=== PATIENT | male | born 1975 | race Caucasian/White ===

== ENCOUNTER 2020-10-17 12:46 | Emergency (ER) | payer OTHER ==
[~2020-10-17] VITALS: Ht 177.8 cm; Wt 146.9 kg
[2020-10-17 12:59] VITALS: BP 144/85
--- NOTE | 2020-10-17 13:09 | PHYS DOC ---
Past History Past Surgical History: No Surgical History General Adult EDM: Chief Complaint: SHOULDER INJURY HPI: HPI: 45-year-old male presents with left shoulder pain. The patient was up on a ladder working around [employer] when as he was coming down the ladder started to tip over. He hit the railing of the deck and then fell to the ground. He states that he landed on his left shoulder. He is concerned for dislocation or fracture of the left shoulder. He denies hitting his head. He denies loss of consciousness. He has no other significant injuries or complaints at this time. Review of Systems: Review of Systems: Constitutional: Denies fever or chills Eyes: Denies change in visual acuity HENT: Denies nasal congestion or sore throat Respiratory: Denies cough or shortness of breath Cardiovascular: Denies chest pain or edema GI: Denies abdominal pain, nausea, vomiting, bloody stools or diarrhea : Denies dysuria Musculoskeletal: Left shoulder pain Integument: Denies rash Neurologic: Denies headache, focal weakness or sensory changes Endocrine: Denies polyuria or polydipsia Lymphatic: Denies swollen glands Psychiatric: Denies depression or anxiety Allergies: Allergies: Allergies Coded Allergies Type Severity Reaction Last Updated Verified No Known Drug Allergies 10/17/20 No Physical Exam: PE: Constitutional: Well developed, well nourished, morbidly obese, no acute distress, non-toxic appearance. [] HENT: Normocephalic, atraumatic, bilateral external ears normal, oropharynx moist, no oral exudates, nose normal. [] Eyes: PERRLA, EOMI, conjunctiva normal, no discharge. [] Neck: Normal range of motion, no tenderness, supple, no stridor. [] Cardiovascular: Heart rate regular rhythm, no murmur [] Lungs & Thorax: Bilateral breath sounds clear to auscultation [] Abdomen: Bowel sounds normal, soft, no tenderness, no masses, no pulsatile masses. [] Skin: Warm, dry, no erythema, no rash. [] Back: No tenderness, no CVA tenderness. [] Extremities: Tenderness of left shoulder, it appears superior compared to right. [] Neurologic: Alert and oriented X 3, normal motor function, normal sensory function, no focal deficits noted. [] Psychologic: Affect normal, judgement normal, mood normal. [] Current Patient Data: Vital Signs: Vital Signs Date Time Temp Pulse Resp B/P (MAP) Pulse Ox O2 Delivery O2 Flow Rate FiO2 10/17/20 12:59 102 20 144/85 98 EKG: EKG: [] Radiology/Procedures: Radiology/Procedures: [] Heart Score: C/O Chest Pain: N/A Risk Factors: Risk Factors: DM, Current or recent (<one month) smoker, HTN, HLP, family history of CAD, obesity. Risk Scores: Score 0 - 3: 2.5% MACE over next 6 weeks - Discharge Home Score 4 - 6: 20.3% MACE over next 6 weeks - Admit for Clinical Observation Score 7 - 10: 72.7% MACE over next 6 weeks - Early Invasive Strategies Course & Med Decision Making: Course & Med Decision Making Pertinent Labs and Imaging studies reviewed. (See chart for details) Based on the patient's mechanism and the way he was holding his arm, I was unsure if it was dislocated versus complex fracture. He was neurovascularly intact. We ordered a chest x-ray and it did show that he had anterior inferior shoulder dislocation. I gave the patient 4 mg of Zofran and 4 mg of morphine IV. We started a liter of normal saline. I was able to reduce the patient's shoulder. See note below for details. He was placed in a shoulder immobilizer. He will follow-up with his primary care physician and orthopedics as necessary. Repeat x-ray showed successful reduction of the shoulder. Shoulder reduction: I obtained verbal consent from the patient for manual reduction of left shoulder dislocation. The patient was given Zofran for nausea and 4 mg of morphine for pain. The patient felt that his pain was adequately controlled for the procedure. I placed the patient in a seated position with his left arm off of the bed. I controlled the patient's arm angle and weight. The arm was placed in a 90 degree bend at the elbow. I performed right inferior traction on the elbow as I slowly externally rotated the forearm. The patient was able to stay relaxed. At about 80 degrees of external rotation the shoulder spontaneously reduced up and back. He had immediate relief of discomfort. The patient was then placed in a shoulder immobilizer. He was neurovascular intact post procedure. [] Dragon Disclaimer: Dragon Disclaimer: This electronic medical record was generated, in whole or in part, using a voice recognition dictation system. Departure Departure: Impression: Primary Impression: Dislocation of left shoulder joint Qualified Codes: S43.005A - Unspecified dislocation of left shoulder joint, initial encounter Disposition: HOME / SELF CARE / HOMELESS Condition: IMPROVED Referrals: [facility] (PCP) Patient Instructions: Shoulder Dislocation, [id number] ELTON MAHAN DO Oct 17, 2020 13:09
[2020-10-17] MEDS ORDERED: MORPHINE SULFATE 4 MG/ML DISP.SYRIN. IV ONE (13:15)
[2020-10-17] MEDS ORDERED: ONDANSETRON PF 4 MG/2 ML VIAL. IVP ONE (13:15)
[2020-10-17] MEDS ORDERED: IV NORMAL SALINE 1,000ML 1,000 ML IV ONE (13:15)
--- NOTE | 2020-10-17 14:14 | RAD ---
Exam Date: 10/17/2020 1:02 PM XR SHOULDER_LEFT 2+ VIEWS Indication: Reason: fall from ladder / Spl. Instructions: pt cant tolerate position for [place] / Histo ry: . FINDINGS/ IMPRESSION: There is anteromedial dislocation of the humeral head. There is a 10 x 4 mm calcification near the h umeral head which has an appearance more suggestive of calcific tendinitis, but could represent a sma ll avulsed fragment. Mild degenerative changes are noted. Electronically signed by: Russell Medina MD (10/17/2020 2:11 PM) NARENDRA
--- NOTE | 2020-10-17 14:15 | RAD ---
Exam Date: 10/17/2020 1:27 PM XR SHOULDER_LEFT 2+ VIEWS Indication: Reason: post-reduct / Spl. Instructions: / History: . COMPARISON: Radiographs from earlier the same day FINDINGS/ IMPRESSION: Interval relocation of previously seen glenohumeral joint dislocation. Small calcification near the humeral head is again noted, and has an appearance suggestive of calcific tendinitis, but could repre sent a small avulsion. Osseous structures are otherwise intact. Mild degenerative changes are noted . Electronically signed by: Russell Medina MD (10/17/2020 2:12 PM) NARENDRA
== END 2020-10-17 13:54 | disposition home or self-care (01) ==
LOC: ER 12:46
DX: S43.005A Unspecified dislocation of left shoulder joint, initial encounter (principal); W11.XXXA Fall on and from ladder, initial encounter; Y93.89 Activity, other specified; Y92.89 Other specified places as the place of occurrence of the external cause; Y99.8 Other external cause status
CPT/HCPCS: 23650; 73030; 96360; 99284; J2270; J2405; J7030